=== PATIENT | female | born 1990 | race Caucasian/White ===

== ENCOUNTER → 2021-01-31 | Outpatient (CLI) | payer OTHER ==
[~2021-01-31] MED LIST: IBUP800 PO
== END ==
LOC: LAB SHORT 11:07 → LAB 11:07
DX: N76.0 Acute vaginitis (principal); Z88.1 Allergy status to other antibiotic agents
CPT/HCPCS: 87070; 87205

== ENCOUNTER → 2021-12-05 | Outpatient (CLI) | payer OTHER ==
[2021-12-06 12:19] LABS: Candida species (DNA Probe) Negative (NEGATIVE); G. vaginalis (DNA Probe) Negative (NEGATIVE); T. vaginalis (DNA Probe) Negative (NEGATIVE)
== END | disposition home or self-care (01) ==
LOC: LAB 18:57 → LAB SHORT 18:57
PROVIDERS: Family Medicine
DX: N89.8 Other specified noninflammatory disorders of vagina (principal)
CPT/HCPCS: 87480; 87510; 87660